=== PATIENT | male | born 1965 | race Caucasian/White ===

== ENCOUNTER 2022-08-29 09:14 | Outpatient (CLI) | payer BC | END 2022-08-29 09:15 | disposition home or self-care (01) | LOC: RAD 09:14 | PROVIDERS: ATTEND Nurse Practitioner Family | DX: R20.0 Anesthesia of skin (principal); M47.812 Spondylosis without myelopathy or radiculopathy, cervical region; R29.890 Loss of height | CPT/HCPCS: 72040; 72070 ==